=== PATIENT | male | born 1960 | race Caucasian/White ===

== ENCOUNTER 2025-03-22 10:15 | Day surgery (SDC) | payer OTHER ==
[2025-03-22 11:43] VITALS: TEMP 98.4
[2025-03-22] MEDS: IV FLUID CONTINUATION 1,000 ML IV ONE (11:52)
[2025-03-22] MEDS: LACTATED RINGERS 1,000 ML IV SCH (11:53)
[2025-03-22] MEDS ORDERED: PROPOFOL 10 MG/ML 20 ML VIAL IV ONE (12:29)
--- NOTE | 2025-03-22 12:42 | P.PCN ---
Date of Procedure: 03/22/25 Procedure(s) Performed: BRIEF HISTORY: Patient is a 65-year-old pleasant white male scheduled for an elective colonoscopy as a part of evaluation of iron deficiency anemia. PROCEDURE PERFORMED: Colonoscopy. PREOPERATIVE DIAGNOSIS: Iron deficiency anemia. IV sedation per Anesthesia. PROCEDURE: After informed consent was obtained, the patient, was brought into the endoscopy unit. IV sedation was administered by Anesthesia under continuous monitoring. Digital rectal examination was normal. Initially the Olympus CF-160 flexible video colonoscope was then inserted in the rectum, gradually advanced into the cecum without any difficulty. Careful examination was performed as the scope was gradually being withdrawn. Ileocecal valve and the appendiceal orifice were visualized and appeared normal. Prep was excellent. Mucosa of the cecum, ascending colon, transverse colon, descending colon, sigmoid colon, and rectum appeared normal. Scattered sigmoid diverticulosis. Retroflexion was performed in the rectum and no lesions were seen. The patient tolerated the procedure well. IMPRESSION: Normal-appearing colon from rectum to cecum with no evidence of colorectal neoplasia Scattered sigmoid diverticulosis. RECOMMENDATIONS: Findings of this examination were discussed with the patient as well as his family.. He was advised to have repeat screening colonoscopy in 10 years
[2025-03-22 13:06] VITALS: BP 158/82; PULSE 45; RESP 16
== END 2025-03-22 13:16 | disposition home or self-care (01) ==
LOC: ORWHC2ENDO 10:15
PROVIDERS: ATTEND Internal Medicine Gastroenterology
DX: K57.30 Diverticulosis of large intestine without perforation or abscess without bleeding (principal); C44.309 Unspecified malignant neoplasm of skin of other parts of face; D50.9 Iron deficiency anemia, unspecified; E78.5 Hyperlipidemia, unspecified; I10 Essential (primary) hypertension; Z79.899 Other long term (current) drug therapy
CPT/HCPCS: 45378; J2704